=== PATIENT | female | born 1965 | race Hispanic/Latino ===

== ENCOUNTER 2025-04-05 09:15 | Emergency (ER) | payer SELFPAY ==
[~2025-04-05] VITALS: Ht 147.3 cm; Wt 69.4 kg
[2025-04-05 10:06] LABS: BASOPHILS # (AUTO) 0.06 K/uL (0.00-0.20); BASOPHILS % (AUTO) 0.4 % (0.0-5.0); EOSINOPHILS # (AUTO) 0.34 K/uL (0.00-0.70); EOSINOPHILS % (AUTO) 2.5 % (0.0-8.0); HEMATOCRIT 37.8 % (36-48); IMMATURE GRANULOCYTE ABSOLUTE 0.07 K/uL (0-1); LYMPHOCYTES # (AUTO) 2.8 K/uL (1.0-4.8); LYMPHOCYTES % (AUTO) 20.4 % (21.0-51.0); MEAN CORPUSCULAR HEMOGLOBIN 29.3 pg (27.0-33.0); MEAN CORPUSCULAR HGB CONC 33.1 g/dL (32.0-36.0); MEAN CORPUSCULAR VOLUME 88.7 fL (79-99); MONOCYTES # (AUTO) 0.9 K/uL (0.1-1.0); MONOCYTES % (AUTO) 6.6 % (3.0-13.0); NEUTROPHILS # (AUTO) 9.5 K/uL (1.8-7.7); NEUTROPHILS % (AUTO) 69.6 % (40.0-77.0); PLATELET COUNT (AUTO) 328 K/uL (130-400); RED BLOOD CELL COUNT(AUTO) 4.26 MIL/uL (4.00-5.50); RED CELL DISTRIBUTION WIDTH 12.6 % (11.0-15.5); WHITE BLOOD COUNT (AUTO) 13.7 K/uL (4.8-10.8)
--- NOTE | 2025-04-05 10:13 | EKG ---
[facility] Test Date: 2025-04-05 Test Time: 10:10:27 Pat Name: JERONIMO DUFFY Department: ED Room: Gender: F [employer] Chief: [id number] : 1965 Requested By: DESHAUN WARNER Order Number: [id number] Reading MD: Jesus Choi Measurements Intervals Ollie Rate: 85 P: 35 MD: 156 QRS: -19 QRSD: 85 T: 14 QT: 339 QTc: 403 Interpretive Statements Sinus rhythm No previous ECG available for comparison Electronically Signed On 04-05-2025 13:09:45 CDT by Jesus Choi Please click the below link to view image of tracing.
[2025-04-05 10:14] LABS: APPEARANCE,URINE TURBID (CLEAR); BILIRUBIN,URINE NEGATIVE (NEGATIVE); COLOR,URINE YELLOW (YELLOW); GLUCOSE, URINE (UA) NEGATIVE (NEGATIVE); KETONES,URINE NEGATIVE (NEGATIVE); LEUKOCYTE ESTERASE ,URINE 500 Leu/uL (NEGATIVE); NITRATE,URINE 1+ (NEGATIVE); OCCULT BLOOD,URINE MODERATE (NEGATIVE); PROTEIN,URINE 70 mg/dL (NEGATIVE); UROBILINOGEN,URINE 0.2 mg/dL (0.2-1.0)
[2025-04-05 10:15] LABS: CREATININE 1.8 mg/dL (0.5-1.0)
[2025-04-05 10:17] LABS: ADD UA MICROSCOPIC YES
[2025-04-05 10:19] LABS: ALBUMIN 3.4 g/dL (3.5-5.0); BILIRUBIN,TOTAL 0.4 mg/dL (0.2-1.0); TOTAL PROTEIN, SERUM 8.1 g/dL (6.0-8.3)
[2025-04-05 10:21] LABS: BACTERIA,URINE MANY /HPF (None Seen); MUCUS,URINE FEW LPF (None Seen); WBC CLUMP MOD /HPF (0-1); WBC,URINE TNTC /HPF (0-1)
--- NOTE | 2025-04-05 10:29 | ERN ---
ED Note History of Present Illness Stated Complaint: ABD PAIN Chief Complaint: Abdominal Pain Time Seen by MD: 09:45 Dictation: PATIENT IS A 59-YEAR-OLD FEMALE COMING IN WITH COMPLAINTS OF DYSURIA AND RIGHT UPPER QUADRANT PAIN WITH NAUSEA FOR THE LAST SEVEN DAYS. SHE HAS HAD NO FEVER NO CHILLS. STATES SHE DOES HAVE BILATERAL FLANK PAIN. SHE SAID SHE HAD A PRIMARY CARE DOCTOR HOWEVER HE RETIRED. SHE HAS TAKEN TYLENOL KMOR-[id number]-[id number] FOR PAIN. STATES SHE HAS A HISTORY OF UTIS AND STILL HAS A GALLBLADDER. Allergies: Coded Allergies: No Known Drug Allergies (Unverified Allergy, Unknown, 04/05/25) Past Medical History Past Medical History: Cancer, Kidney Stone Surgical History: Other, Surgical History Other: ABD HERNIA REPAIR, LT KNEE SX History: Not Applicable RN Note Reviewed/Agreed w/PFSH: Yes Review of System Dictation CONSTITUTIONAL: NEGATIVE EXCEPT FOR HPI HEAD/FACE: NEGATIVE EXCEPT FOR HPI EENT: NEGATIVE EXCEPT FOR HPI RESPIRATORY: NEGATIVE EXCEPT FOR HPI GASTROINTESTINAL/ABDOMINAL: NEGATIVE EXCEPT FOR HPI RIGHT UPPER QUADRANT PAIN WITH DYSURIA GENITOURINARY: NEGATIVE EXCEPT FOR HPI MUSCULOSKELETAL: NEGATIVE EXCEPT FOR HPI INTEGUMENTARY: NEGATIVE EXCEPT FOR HPI NEUROLOGICAL/PSYCH: NEGATIVE EXCEPT FOR HPI HEMATOLOGIC/LYMPHATIC: NEGATIVE EXCEPT FOR HPI ALL SYSTEMS NEGATIVE, EXCEPT NOTED ABOVE. 13 POINT REVIEW OF SYSTEMS ASSESSED AND ALL NEGATIVE EXCEPT FOR ABOVE. Initial Vital Sign VS Vital Signs Date Time Temp Pulse Resp B/P (MAP) Pulse Ox O2 Delivery O2 Flow Rate FiO2 04/05/25 09:16 99.3 90 18 111/85 99 Room Air 04/05/25 09:27 0 21 Physical Exam Dictation VITAL SIGNS REVIEWED GENERAL APPEARANCE: ALERT, ORIENTED X 3, NO ACUTE DISTRESS, WELL DEVELOPED, NOURISHED. HEAD AND FACE: NON-TRAUMATIC. EYES: PERRL, PINK CONJUNCTIVAS, EYELID NO TRAUMA, ANTERIOR CHAMBER WITH ARCUS SENILIS. EARS: PINNAS INTACT AND NO SIGNS OF TRAUMA OR ERYTHEMA EAR CANALS CLEAR AND NO DISCHARGE TM NO ERYTHEMA NOSE: NO DISCHARGE, NO BLEEDING. OROPHARYNX: MOUTH NORMAL, TONGUE PINK, PHARYNX CLEAR,NO ERYTHEMA, TONSILS NO EXUDATES, NO ABSCESSES NOTED, MUCOUS MEMBRANE MOIST NECK: SUPPLE, NON-TENDER, NO THYROMEGALY, NO MASSES, NO JVD, NO BRUITS BREAST:DEFERRED CHEST:NO TENDERNESS, NO CREPITUS, NO PARADOXICAL MOVEMENT, NO RETRACTIONS LUNGS:CLEAR, WELL-VENTILATED, SYMMETRIC, NO RALES, NO WHEEZING, NO RHONCHI, NO STRIDOR, GOOD BREATH SOUNDS BILATERALLY HEART: REGULAR RATE, REGULAR RHYTHM, NO MURMUR, NO GALLOPS VASCULAR: NO PERIPHERAL EDEMA, ABDOMEN: SOFT, POSITIVE BOWEL SOUNDS, NONDISTENDED, NO GUARDING, NONTENDER, NO REBOUND, NO MASSES NO HEPATOMEGALY, NO SPLENOMEGALY, POSITIVE KING'S SIGN RECTAL: DEFERRED GENITAL: DEFERRED MILD SUPRAPUBIC PAIN NEUROLOGICAL: NORMAL SPEECH, MOTOR FUNCTION INTACT, SENSORY FUNCTION INTACT MUSCULOSKELETAL: NECK NONTENDER, FULL RANGE OF MOTION, BACK NONTENDER, FULL RANGE OF MOTION, EXTREMITIES: NONTENDER, FULL RANGE OF MOTION SKIN: COLOR PINK, DRY, NO TURGOR, NO RASH, NO LACERATIONS, NO ABRASIONS, NO CONTUSIONS. LYMPHATIC: DEFERRED Results (Laboratory/Radiology) Laboratory/Radiology Laboratory Tests Test 04/05/25 09:37 White Blood Count 13.7 K/uL (4.8-10.8) H Red Blood Count 4.26 MIL/uL (4.00-5.50) Hemoglobin 12.5 g/dL (12.0-16.0) Hematocrit 37.8 % (36-48) Mean Corpuscular Volume 88.7 fL (79-99) Mean Corpuscular Hemoglobin 29.3 pg (27.0-33.0) Mean Corpuscular Hemoglobin Concent 33.1 g/dL (32.0-36.0) Red Cell Distribution Width 12.6 % (11.0-15.5) Platelet Count 328 K/uL (130-400) Mean Platelet Volume 10.1 fL (7.5-10.5) Immature Granulocyte % (Auto) 0.5 % (0-1) Neutrophils (%) (Auto) 69.6 % (40.0-77.0) Lymphocytes (%) (Auto) 20.4 % (21.0-51.0) L Monocytes (%) (Auto) 6.6 % (3.0-13.0) Eosinophils (%) (Auto) 2.5 % (0.0-8.0) Basophils (%) (Auto) 0.4 % (0.0-5.0) Neutrophils # (Auto) 9.5 K/uL (1.8-7.7) H Lymphocytes # (Auto) 2.8 K/uL (1.0-4.8) Monocytes # (Auto) 0.9 K/uL (0.1-1.0) Eosinophils # (Auto) 0.34 K/uL (0.00-0.70) Basophils # (Auto) 0.06 K/uL (0.00-0.20) Absolute Immature Granulocyte (auto 0.07 K/uL (0-1) Nucleated Red Blood Cells 0.0 % (0.0-0.19) Urine Color YELLOW (YELLOW) Urine Appearance TURBID (CLEAR) Urine pH 6.0 (5.0-8.0) Urine Specific [place] 1.012 (1.001-1.031) Urine Protein 70 mg/dL (NEGATIVE) H Urine Glucose (UA) NEGATIVE mg/dL (NEGATIVE) Urine Ketones NEGATIVE mg/dL (NEGATIVE) Urine Occult Blood MODERATE (NEGATIVE) H Urine Nitrate 1+ (NEGATIVE) H Urine Bilirubin NEGATIVE mg/dL (NEGATIVE) Urine Urobilinogen 0.2 mg/dL (0.2-1.0) Urine Leukocyte Esterase 500 Gm/uL (NEGATIVE) H Urine RBC 11-25 /HPF (0-1) H Urine WBC TNTC /HPF (0-1) H Urine WBC Clumps (Auto) MOD /HPF (0-1) Urine Bacteria MANY /HPF (None Seen) Sodium Level 142 mmol/L (136-145) Potassium Level 4.0 mmol/L (3.5-5.1) Chloride Level 106 mmol/L (101-111) Carbon Dioxide Level 21 mmol/L (21-32) Blood Urea Nitrogen 31 mg/dL (7-18) H Creatinine 1.8 mg/dL (0.5-1.0) H Glomerular Filtration Rate Calc 32 mL/min (>90) Random Glucose 101 mg/dL (70-105) Total Calcium 9.4 mg/dL (8.5-10.1) Total Bilirubin 0.4 mg/dL (0.2-1.0) Aspartate Amino Transf (AST/SGOT) 22 U/L (10-37) Alanine Aminotransferase (ALT/SGPT) 21 U/L (12-78) Alkaline Phosphatase 107 U/L (50-136) Troponin I High Sensitivity < 4 ng/L (4-50) L Total Protein 8.1 g/dL (6.0-8.3) Albumin 3.4 g/dL (3.5-5.0) L RIGHT UPPER QUADRANT ULTRASOUND DEMONSTRATES SINGLE GALLSTONE, WALL AND COMMON BILE DUCT NORMAL LIMITS NO PERICHOLECYSTIC FLUID Labs Reviewed?: Yes ED Course ED Course Orders Procedure Category Date Status Time 12 Lead Ekg Tracing- EKG 04/05/25 Complete Technical 09:57 Cbc With Differential LAB 04/05/25 Complete 09:57 Comprehensive LAB 04/05/25 Complete Metabolic Panel 09:57 Urinalysis Profile LAB 04/05/25 Complete 09:57 Troponin I High LAB 04/05/25 Complete Sensitivity 09:57 Culture Urine STEVE 04/05/25 In Process 10:18 Us Abdominal Ruq\Ltd US 04/05/25 Taken 10:27 0.9%Nacl 1000ml (Ns PHA 04/05/25 Complete 1000ml) 10:30 Ketorolac PHA 04/05/25 Complete Tromethamine 30mg/Ml 10:30 Ceftriaxone 2gm Vial PHA 04/05/25 Complete (Rocephin 2gm Inj) 10:30 Current Medications Medications (Trade) Dose Ordered Sig/Tom Route PRN Reason Start Time Stop Time Status Last Admin Dose Admin Ceftriaxone Sodium (Rocephin 2gm Inj) 2 gm ONCE ONCE IVPB 04/05/25 10:30 04/05/25 10:32 DC 04/05/25 10:40 Ketorolac Tromethamine (toRADol) 30 mg ONCE ONCE IVP 04/05/25 10:30 04/05/25 10:32 DC 04/05/25 10:40 Sodium Chloride 1,000 ml @ 0 mls/hr ONCE ONCE IV 04/05/25 10:30 04/05/25 10:31 DC 04/05/25 10:40 Vital Signs Date Time Temp Pulse Resp B/P (MAP) Pulse Ox O2 Delivery O2 Flow Rate FiO2 04/05/25 10:26 99.3 87 18 101/69 99 Room Air* 0 21 04/05/25 09:27 99.3 90 18 111/85 99 Room Air* 0 21 04/05/25 09:16 99.3 90 18 111/85 99 Room Air 1155/PATIENT REPORTS INCREASED COMFORT AND DECREASED PAIN AFTER TREATMENT. 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 DISCHARGED HOME WITH PYRIDIUM/AUGMENTIN 875/IBUPROFEN AND TOLDBABR TO FOLLOW UP WITH DR. MOHAN CACERES [facility] FOR FOLLOW UP AND FOLLOW A LOW-FAT DIET. Medical Decision Making MDM MEDICAL DISCHARGE MAKING BASED ON BASIC LABS FOR RIGHT UPPER QUADRANT PAIN AND DYSURIA. PATIENT HAS A SINGLE GALLBLADDER STONE WITHOUT PERICHOLECYSTIC FLUID NO COMMON BILE DUCT OR WALL THICKENING LARGE CYSTITIS WITH HEMATURIA DISCHARGED HOME WITH THE AUGMENTIN/PYRIDIUM/IBUPROFEN GIVEN INFORMATION ON LOW-FAT DIET AND TOLD TO FOLLOW UP WITH SURGEON NEXT DX & DISP Disposition: Discharge Departure Impression: Primary Impression: Acute cystitis with hematuria Additional Impressions: Cholelithiasis, Biliary colic, Stage 3 chronic kidney disease, Obesity Condition: Stable Scripts Phenazopyridine HCl (Pyridium) 200 Mg Tab 200 MG PO TIDPC for 3 Days, #9 TAB TAKE WITH FOOD TO PREVENT STOMACH UPSET. Prov: JULIO CESAR REYES NP 04/05/25 Amoxicillin/Potassium Clav (Amox Tr-K Clv 875-125 mg Tab) 875 Mg-125 Mg Tablet 1 EACH PO BID for 7 Days, #14 TAB 0 Refills Prov: JULIO CESAR REYES NP 04/05/25 Ibuprofen (Ibuprofen 800 mg Tab) 800 Mg Tab 800 MG PO Q8H PRN for fever or pain, #30 TAB 0 Refills Prov: JULIO CESAR REYES NP 04/05/25 Additional Instructions: FOLLOW-UP WITH PRIMARY CARE PROVIDER IN 1 TO 2 DAYS. TAKE MEDICATIONS DIRECTED HERE IN THE EMERGENCY ROOM. OKAY TO CONTINUE HOME MEDICATIONS UNLESS OTHERWISE DISCUSSED DURING YOUR VISIT IN THE EMERGENCY ROOM TODAY. RETURN TO YOUR NEAREST EMERGENCY ROOM IF SYMPTOMS WORSEN OR IF THERE IS NO IMPROVEMENT. CALL 911 IF YOU NEED IMMEDIATE ASSISTANCE. TAKE TYLENOL OR MOTRIN NWBC-GTH-CTEGRHZ NEEDED AND IF NO CONTRAINDICATIONS ARE PRESENT. INCREASE ORAL HYDRATION. A WOUND CULTURE OR URINE CULTURE WAS ORDERED HERE IN THE EMERGENCY ROOM DEPARTMENT PLEASE FOLLOW-UP WITH PRIMARY CARE PROVIDER AND ADVISE THEM TO GET REPEAT PORTS FROM OUR FACILITY. IF YOU HAD ANY LEXI WRAP/SPLINTS THAT WERE APPLIED HERE, PLEASE DO NOT REMOVE THEM UNTIL YOU SEE YOUR PRIMARY CARE OR SPECIALTY. TAKE ANTIBIOTICS DIRECTED UNTIL GONE. , INCREASE YOUR WATER INTAKE., FOLLOW UP WITH SURGEON IN THE NEXT 1-2 DAYS AND FOLLOW A LOW-FAT DIET. SUGGEST FINDING A PRIMARY CARE DOCTOR FOR MANAGEMENT OF YOUR MEDICAL CONDITION TO INCLUDE STAGE 3 CHRONIC KIDNEY DISEASE. Referrals: SELF,REFERRAL (PCP) MOHAN CACERES MD, JACK P NP Apr 05, 2025 10:29
[2025-04-05] MEDS: ketOROlac 30MG VIAL (30MG/ML) IVP ONE (10:40)
[2025-04-05] MEDS: 0.9%NACL 1000ML 1,000 ML IV ONE (10:40)
[2025-04-05] MEDS: cefTRIAXone 2GM VIAL IVPB ONE (10:40)
[2025-04-05] MEDS ORDERED: IBUP-2077 PO (12:00)
[2025-04-05] MEDS ORDERED: AMOX1TAB16 PO (12:00)
[2025-04-05] MEDS ORDERED: PHEN-847 PO (12:00)
[2025-04-05] MEDS: ondanSETRON 4MG INJ IVP ONE (12:22)
[2025-04-05] MEDS: morPHINE 2 MG SYG IVP ONE (12:22)
[2025-04-05 12:40] VITALS: BP 113/71; PULSE 81; RESP 18; TEMP 98.9; O2SAT 99
--- NOTE | 2025-04-05 20:01 | HMCIMG ---
EXAMINATION: US Abdomen, Right Upper Quadrant. CLINICAL HISTORY: Patient presents with abdominal pain. COMPARISON: None provided. TECHNIQUE: Right upper quadrant sonography performed with image documentation. FINDINGS: LIVER: The liver measures 13 cm and is within normal limits in echogenicity. No mass identified. GALLBLADDER: The gallbladder wall thickness is 2 mm. One gallstone is noted. COMMON BILE DUCT: The common bile duct measures 3 mm and is within normal limits. PANCREAS: The pancreas is partially visualized. The visualized portion appears within normal limits. RIGHT KIDNEY: The right kidney measures 12.4 x 5.9 x 4.9 cm. An exophytic cyst is present in the right kidney, measuring 7 x 9 x 7.7 cm. Normal renal contours. No renal calculus or hydronephrosis. IMPRESSION: Exophytic cyst in the right kidney measuring 7 x 9 x 7.7 cm. Consider contrast-enhanced CT imaging for further evaluation. Cholelithiasis. No acute cholecystitis. /[facility]
== END 2025-04-05 13:23 | disposition home or self-care (01) ==
LOC: EDH 09:15
DX: N30.01 Acute cystitis with hematuria (principal); K80.20 Calculus of gallbladder without cholecystitis without obstruction; K80.50 Calculus of bile duct without cholangitis or cholecystitis without obstruction; N18.30 Chronic kidney disease, stage 3 unspecified; E66.9 Obesity, unspecified; Z98.890 Other specified postprocedural states; Z68.32 Body mass index [BMI] 32.0-32.9, adult
CPT/HCPCS: 99285; 96365; 96375; 76705; 84484; 80053; 85025; 87086 ×2; 87186; 81001; 36415; 93005; J1885; J2270; J7030; J0696; J2405